=== PATIENT | female | born 2000 | race Two or more races ===

== ENCOUNTER 2023-04-14 01:16 | Emergency (ER) | payer OTHER ==
[~2023-04-14] VITALS: Ht 170.2 cm; Wt 94.8 kg
== END 2023-04-14 05:04 | disposition home or self-care (01) ==
LOC: ER 01:16
DX: O26.891 Other specified pregnancy related conditions, first trimester (principal); O9A.211 Injury, poisoning and certain other consequences of external causes complicating pregnancy, first trimester; Z3A.11 11 weeks gestation of pregnancy; T14.90XA Injury, unspecified, initial encounter; V49.9XXA Car occupant (driver) (passenger) injured in unspecified traffic accident, initial encounter; Y92.413 State road as the place of occurrence of the external cause; Y93.9 Activity, unspecified; Y99.9 Unspecified external cause status; M54.2 Cervicalgia

== ENCOUNTER 2023-06-22 09:25 | Outpatient (CLI) | payer OTHER | END 2023-06-22 12:12 | disposition home or self-care (01) | LOC: PRENATAL 09:25 | PROVIDERS: ATTEND Obstetrics & Gynecology Maternal & Fetal Medicine | DX: O35.3XX0 Maternal care for (suspected) damage to fetus from viral disease in mother, not applicable or unspecified (principal); O44.00 Complete placenta previa NOS or without hemorrhage, unspecified trimester; Z3A.20 20 weeks gestation of pregnancy ==

== ENCOUNTER 2023-09-24 17:11 | Outpatient (CLI) | payer OTHER ==
[2023-09-24 17:45] LABS: PH,URINE 6.5 (5.0-8.0); URINE APPEARANCE Clear; URINE BILIRRUBIN Negative (NEGATIVE); URINE BLOOD Negative; URINE COLOR Yellow; URINE LEUKOCYTE Negative; URINE NITRATE Negative; URINE PROTEIN Negative (NEGATIVE); URINE UROBILINOGEN 0.2 E.U./dl
[2023-09-24 17:46] LABS: HEMATOCRIT 29.1 % (36.0-45.00); HEMOGLOBIN 9.7 g/dL (12.0-15.00); MEAN CELL VOLUME 86.4 fL (80.00-100.00); MEAN CORPUSCULAR HEMOGLOBIN 28.8 pg (27.00-32.0); MEAN CORPUSCULAR HGB CONC 33.4 g/dl (32.0-36.0); PLATELET COUNT 242 K/uL (150-450); RED BLOOD COUNT 3.37 M/uL (4.00-6.00); RED CELL DISTRIBUTION WIDTH 15.9 % (11.5-14.5); URINE BACTERIA 1766.4 uL (0.0-1933); URINE EPITHELIAL CELLS 13.1 uL (0.0-38.8); URINE RBC 9.4 uL (0.0-20.8); URINE WBC 21.4 uL (0.0-23.2)
[2023-09-24 17:53] LABS: URINE GLUCOSE 100 MG/DL (NEGATIVE)
== END 2023-09-24 21:34 | disposition home or self-care (01) ==
LOC: OBS/DEL 17:11
PROVIDERS: ATTEND Student in an Organized Health Care Education/Training Program
DX: O98.813 Other maternal infectious and parasitic diseases complicating pregnancy, third trimester (principal); O99.013 Anemia complicating pregnancy, third trimester; O23.33 Infections of other parts of urinary tract in pregnancy, third trimester; N39.0 Urinary tract infection, site not specified; Z3A.33 33 weeks gestation of pregnancy

== ENCOUNTER 2023-10-28 10:20 | Outpatient (CLI) | payer OTHER ==
[2023-10-28] MEDS ORDERED: PRENATAL TABLE1 EAC1 (10:26)
[2023-10-28] MEDS ORDERED: IRON18 MG (10:27)
== END 2023-10-28 14:27 | disposition home or self-care (01) ==
LOC: OBS/DEL 10:20
PROVIDERS: ATTEND Student in an Organized Health Care Education/Training Program
DX: O47.1 False labor at or after 37 completed weeks of gestation (principal); Z3A.38 38 weeks gestation of pregnancy; O26.893 Other specified pregnancy related conditions, third trimester

== ENCOUNTER 2023-10-31 10:53 | Inpatient (IN) | payer OTHER ==
[~2023-10-31] VITALS: Ht 170.2 cm; Wt 3.6 kg
[~2023-10-31 10:53] MED LIST: IRON18 MG PO; PRENATAL TABLE1 EAC1 PO
[2023-10-31 12:41] LABS: HEMATOCRIT 30.4 % (36.0-45.00); MEAN CELL VOLUME 83.5 fL (80.00-100.00); MEAN CORPUSCULAR HEMOGLOBIN 27.4 pg (27.00-32.0); MEAN CORPUSCULAR HGB CONC 32.9 g/dl (32.0-36.0); PH,URINE 6.5 (5.0-8.0); PLATELET COUNT 211 K/uL (150-450); RED BLOOD COUNT 3.65 M/uL (4.00-6.00); RED CELL DISTRIBUTION WIDTH 17.7 % (11.5-14.5); URINE APPEARANCE Clear; URINE BILIRRUBIN Negative (NEGATIVE); URINE BLOOD Negative; URINE COLOR Yellow; URINE LEUKOCYTE Negative; URINE NITRATE Negative; URINE PROTEIN 30 (NEGATIVE); URINE UROBILINOGEN 0.2 E.U./dl
[2023-10-31 12:45] LABS: URINE BACTERIA 3148.4 uL (0.0-1933); URINE EPITHELIAL CELLS 26.4 uL (0.0-38.8); URINE RBC 6.1 uL (0.0-20.8); URINE WBC 39.7 uL (0.0-23.2)
[2023-10-31 12:55] LABS: INR < 0.93; PARTIAL THROMBOPLASTIN TIME 25.7 SECONDS (22.0-34.0); PROTHROMBIN TIME 9.3 SECONDS (9.0-11.5)
[2023-10-31 13:00] LABS: ALBUMIN 2.3 gm/dL (3.4-5.0); BILIRUBIN TOTAL 0.18 mg/dL (0.3-1.2); CALCIUM 8.6 mg/dL (8.5-10.1); CREATININE SERUM 0.52 mg/dL (0.55-1.02); GFR 148.86; GLOBULINA 3.5 G/DL (2.4-3.5); POTASSIUM 4.1 mEq/L (3.5-5.1); TOTAL PROTEIN 5.8 gm/dL (6.4-8.2)
[2023-10-31 14:00] LABS: URINE GLUCOSE >=1000 MG/DL (NEGATIVE)
[2023-11-01 21:52] LABS: HEMATOCRIT 28.1 % (36.0-45.00); HEMOGLOBIN 9.4 g/dL (12.0-15.00); MEAN CELL VOLUME 83.4 fL (80.00-100.00); MEAN CORPUSCULAR HGB CONC 33.6 g/dl (32.0-36.0); PLATELET COUNT 199 K/uL (150-450); RED BLOOD COUNT 3.36 M/uL (4.00-6.00); RED CELL DISTRIBUTION WIDTH 18.2 % (11.5-14.5)
== END 2023-11-03 13:04 | disposition home or self-care (01) | DRG 788 ==
LOC: OB/GYN 10:53 → O/R 10:53 → LDR 10:53 → O/R 11-01 16:34 → OB/GYN 11-01 18:33
PROVIDERS: ADMIT Student in an Organized Health Care Education/Training Program; ATTEND Student in an Organized Health Care Education/Training Program
PROC: 3E0P7VZ Introduction of Hormone into Female Reproductive, Via Natural or Artificial Opening (ICD-10-PCS; 2023-10-31)
PROC: 4A1HXCZ Monitoring of Products of Conception, Cardiac Rate, External Approach (ICD-10-PCS; 2023-10-31)
PROC: 3E033VJ Introduction of Other Hormone into Peripheral Vein, Percutaneous Approach (ICD-10-PCS; 2023-11-01)
PROC: 10D00Z1 Extraction of Products of Conception, Low, Open Approach (ICD-10-PCS; principal; 2023-11-01 17:45)
DX: O62.1 Secondary uterine inertia (principal); O13.4 Gestational [pregnancy-induced] hypertension without significant proteinuria, complicating childbirth; O99.824 Streptococcus B carrier state complicating childbirth; O36.63X0 Maternal care for excessive fetal growth, third trimester, not applicable or unspecified; O99.214 Obesity complicating childbirth; E66.9 Obesity, unspecified; Z3A.39 39 weeks gestation of pregnancy; Z37.0 Single live birth